=== PATIENT | female | born 1960 | race Caucasian/White ===

== ENCOUNTER 2016-10-16 23:59 | Emergency (ER) | payer MEDICAID ==
[~2016-10-16 23:59] MED LIST: ACYCLOVIR PO; AMBIEN PO; ASPIRIN EC81 M1 PO; AZITHROMYCIN500 MG PO; CELEXA PO; CELEXA10 MG PO; CHANTIX; CIPRO PO; CLEOCIN HCL300 M1 PO; COREG3.125 MG PO; DESYREL50 M1 PO; DESYREL50 MG DOB; DOXYCYCLINE150 MG PO; DULERA 100 MCG/13 GM IH; ENTRESTO 24 MG1 EACH PO; HYDROCODONE-GU480 ML PO; IBUPROFEN PO; LEVOFLOXACIN750 MG PO; LIPITOR40 MG PO; LORTAB 5/500 TA1 TA1 PO; NAPROSYN500 MG PO; NICOTINE T1 PATCH .2 TOP; NORCO 5/325 TAB1 TAB PO; PREDNISONE PO; PREDNISONE50 MG; PREDNISONE50 MG PO; PROAIR HFA8.5 GM INH; PROMETHAZINE D118 ML PO; ROBAXIN500 MG PO; ROBITUSSIN-DM118 M1 PO; SPIRIVA18 MCG INH; SYNTHROID75 MCG PO; SYNTHROID88 MCG PO; TRAZODONE HCL100 MG PO; TUSSIONEX PENN473 ML PO; VALACYCLOVIR1000 MG PO; VOLTAREN75 MG PO; ZESTORETIC PO; ZESTRIL5 MG PO; ZITHROMAX PO; ZOLOFT PO; ZOVIRAX800 MG PO; [UNRECOGNIZED DRUG - OTHER]
== END 2016-10-17 01:28 | disposition home or self-care (01) ==
LOC: SED 23:59
DX: T78.1XXA Other adverse food reactions, not elsewhere classified, initial encounter (principal); L50.0 Allergic urticaria; L29.9 Pruritus, unspecified; F17.210 Nicotine dependence, cigarettes, uncomplicated; Z88.0 Allergy status to penicillin; Z88.2 Allergy status to sulfonamides; Z88.5 Allergy status to narcotic agent; Z91.040 Latex allergy status; Z79.899 Other long term (current) drug therapy
CPT/HCPCS: 36415; 96374; 96375; 99284; J1200; J2930

== ENCOUNTER → 2016-12-14 | Outpatient (CLI) | payer MEDICAID | END | disposition home or self-care (01) | LOC: CECH 11-14 13:00 | DX: I50.40 Unspecified combined systolic (congestive) and diastolic (congestive) heart failure (principal) | CPT/HCPCS: 93306 ==